=== PATIENT | female | born 1950 | race Caucasian/White ===

== ENCOUNTER → 2016-11-02 | Outpatient (REF) ==
[2015-12-12 16:52] VITALS: BP 185/109
[~2016-11-02] MED LIST: AMBIEN CR6.25 M1 PO; AMBIEN5 M1 PO; AMLODIPINE5 MG PO; MAXALT MLT10 MG/TAB PO; MIRAPEX0.5 MG PO; NUBAIN; OMEPRAZOLE40 MG PO; PERCOCET 325 MG1 TA2 PO; REGLAN 10M10 MG/2 ML; RELPAX 40MG TAB40 MG PO; RELPAX40 MG PO; RESTORIL30 MG PO; TEMAZEPAM; TREXIMET PO; XANAX0.25 MG PO
== END ==
LOC: LAB 15:55
DX: R10.30 Lower abdominal pain, unspecified (principal)

== ENCOUNTER 2017-12-07 19:24 | Emergency (ER) | payer OTHER ==
[~2017-12-07 19:24] MED LIST changes: +RESTORIL30 M1 PO; -RESTORIL30 MG PO
[2017-12-07] MEDS ORDERED: LISINOPRIL40 MG PO (19:32)
[2017-12-07] MEDS ORDERED: MIRAPEX0.125 M1 PO (19:32)
[2017-12-07] MEDS ORDERED: TOPROL XL 50MG50 MG PO (19:33)
[2017-12-07] MEDS ORDERED: KAPSPARGO SPRIN50 MG PO (19:33)
[2017-12-07 20:25] LABS: EOS # 0.2 (0.04-0.40); EOS % 2.3 % (1.0-5.0); HEMATOCRIT 44.5 % (37.0-47.0); HEMOGLOBIN 15.3 g/dL (12.5-16.0); LYMPH# 3.8 (1.50-4.00); MEAN CELL VOLUME 92 fl (78-100); MEAN CORPUSCULAR HEMOGLOBIN 32 pg (27-31); MEAN CORPUSCULAR HGB CONC 34 g/dL (33-37); MEAN PLATELET VOLUME 9.5 fl (7.4-10.4); MONO # 0.7 (0.20-0.80); PLATELET COUNT 231 K/mm3 (130-400); RED BLOOD COUNT 4.82 M/mm3 (4.10-5.30); WHITE BLOOD COUNT 8.7 K/mm3 (4.8-10.8)
[2017-12-07 20:39] LABS: ALBUMIN 4.3 g/dL (3.5-5.0); CALCIUM 9.7 mg/dL (8.4-10.2); POTASSIUM 4.2 mmol/L (3.6-5.0); TOTAL BILIRUBIN 0.7 mg/dL (0.2-1.3); TOTAL PROTEIN 7.9 g/dL (6.3-8.2)
[2017-12-07 20:40] LABS: PROTHROMBIN TIME 9.5 SECONDS (9.0-12.0)
[2017-12-07 21:04] LABS: URINE APPEARANCE HAZY; URINE BILIRUBIN NEGATIVE (NEGATIVE); URINE BLOOD TRACE (NEGATIVE); URINE COLOR YELLOW; URINE GLUCOSE NEGATIVE (NEGATIVE); URINE KETONE NEGATIVE (NEGATIVE); URINE LEUKOCYTE ESTERASE TRACE (NEGATIVE); URINE NITRATE NEGATIVE (NEGATIVE); URINE PROTEIN(semi-quant) NEGATIVE (NEGATIVE); URINE UROBILINOGEN NORMAL (NORMAL)
[2017-12-07 21:08] LABS: TROPONIN-I < 0.03 ng/mL (0.00-0.06)
[2017-12-07 22:02] VITALS: BP 142/94
== END 2017-12-07 22:02 | disposition home or self-care (01) ==
LOC: ED 19:24
PROVIDERS: Nurse Practitioner
DX: I10 Essential (primary) hypertension (principal); Z87.891 Personal history of nicotine dependence; Z79.899 Other long term (current) drug therapy

== ENCOUNTER → 2018-09-08 | Outpatient (CLI) | payer MEDICARE, OTHER ==
[2018-08-30 18:50] VITALS: BP 138/63
[~2018-09-08] MED LIST changes: +BENZONATATE200 MG PO; +HCTZ 25MG25 MG PO; +KAPSPARGO SPRIN50 MG PO; +LISINOPRIL40 MG PO; +MIRAPEX0.125 M1 PO; +PANTOPRAZOLE SO40 MG PO; +PRAMIPEXOLE DI0.5 MG PO; +QUETIAPINE FUMA50 M1 PO; +SUMATRIPTAN-NA1 EACH PO; +TEMAZEPAM30 M1 PO; +TOPROL XL 50MG50 MG PO
[2018-09-08 12:47] LABS: POTASSIUM 4.3 mmol/L (3.5-5.1)
[2018-09-08 12:48] LABS: CALCIUM 9.5 mg/dL (8.3-10.5)
== END ==
LOC: LAB 11:11
PROVIDERS: Family Medicine
DX: I10 Essential (primary) hypertension (principal)

== ENCOUNTER 2019-07-26 19:51 | Emergency (ER) | payer MEDICARE, OTHER ==
[~2019-07-26] VITALS: Ht 177.8 cm; Wt 100.0 kg
[2019-07-26 21:08] LABS: EOS # 0.1 (0.04-0.40); EOS % 1.4 % (1.0-5.0); HEMATOCRIT 42.6 % (37.0-47.0); HEMOGLOBIN 14.5 g/dL (12.5-16.0); LYMPH# 2.4 (1.50-4.00); MEAN CELL VOLUME 93 fl (78-100); MEAN CORPUSCULAR HEMOGLOBIN 32 pg (27-31); MEAN CORPUSCULAR HGB CONC 34 g/dL (33-37); MEAN PLATELET VOLUME 9.3 fl (7.4-10.4); MONO # 0.7 (0.20-0.80); NEU # 6.3 (1.40-6.50); PLATELET COUNT 179 K/mm3 (130-400); RED BLOOD COUNT 4.58 M/mm3 (4.10-5.30); RED CELL DISTRIBUTION WIDTH 12.7 % (11.5-14.5); WHITE BLOOD COUNT 9.6 K/mm3 (4.8-10.8)
[2019-07-26 21:19] LABS: ALBUMIN 3.9 g/dL (3.4-4.8)
[2019-07-26 21:21] LABS: CALCIUM 9.4 mg/dL (8.3-10.5)
[2019-07-26 21:22] LABS: TOTAL PROTEIN 7.5 g/dL (6.2-8.1)
[2019-07-26 21:24] LABS: TOTAL BILIRUBIN 1.1 mg/dL (0.2-1.2)
[2019-07-26 21:51] LABS: PH-URINE 5.5 (5.0 - 8.0); URINE APPEARANCE CLEAR; URINE COLOR YELLOW
[2019-07-26 21:52] LABS: URINE BILIRUBIN NEGATIVE (NEGATIVE); URINE BLOOD NEGATIVE (NEGATIVE); URINE GLUCOSE NEGATIVE (NEGATIVE); URINE KETONE NEGATIVE (NEGATIVE); URINE LEUKOCYTE ESTERASE NEGATIVE (NEGATIVE); URINE NITRATE NEGATIVE (NEGATIVE); URINE PROTEIN(semi-quant) NEGATIVE (NEGATIVE); URINE UROBILINOGEN NORMAL (NORMAL)
[2019-07-26 22:16] VITALS: BP 86/50
== END 2019-07-26 22:15 | disposition other institution (70) ==
LOC: ED 19:51
PROVIDERS: Nurse Practitioner
DX: K57.92 Diverticulitis of intestine, part unspecified, without perforation or abscess without bleeding (principal); I10 Essential (primary) hypertension; K21.9 Gastro-esophageal reflux disease without esophagitis; Z90.710 Acquired absence of both cervix and uterus
CPT/HCPCS: J2405; J3010; Q9967

== ENCOUNTER 2019-07-26 22:06 | Inpatient (IN) | payer MEDICARE, OTHER ==
[~2019-07-26] VITALS: Ht 177.8 cm; Wt 98.8 kg
[2019-07-26 22:46] VITALS: BP 86/50
[2019-07-26 22:58] VITALS: BP 86/50
[2019-07-27 01:39] VITALS: BP 88/56
[2019-07-27 03:10] VITALS: BP 86/56
[2019-07-27 05:57] VITALS: BP 93/62
[2019-07-27 09:31] LABS: EOS # 0.3 (0.04-0.40); EOS % 2.6 % (1.0-5.0); HEMATOCRIT 39.8 % (37.0-47.0); HEMOGLOBIN 13.1 g/dL (12.5-16.0); LYMPH# 2.9 (1.50-4.00); MEAN CELL VOLUME 94 fl (78-100); MEAN CORPUSCULAR HEMOGLOBIN 31 pg (27-31); MEAN CORPUSCULAR HGB CONC 33 g/dL (33-37); MEAN PLATELET VOLUME 9.5 fl (7.4-10.4); MONO # 0.9 (0.20-0.80); NEU # 5.5 (1.40-6.50); PLATELET COUNT 164 K/mm3 (130-400); RED BLOOD COUNT 4.22 M/mm3 (4.10-5.30); RED CELL DISTRIBUTION WIDTH 12.8 % (11.5-14.5); WHITE BLOOD COUNT 9.6 K/mm3 (4.8-10.8)
[2019-07-27 09:42] LABS: ALBUMIN 3.5 g/dL (3.4-4.8)
[2019-07-27 09:43] LABS: POTASSIUM 4.2 mmol/L (3.5-5.1)
[2019-07-27 09:45] LABS: TOTAL PROTEIN 6.7 g/dL (6.2-8.1)
[2019-07-27 09:47] LABS: TOTAL BILIRUBIN 0.9 mg/dL (0.2-1.2)
[2019-07-27 09:49] LABS: CALCIUM 8.4 mg/dL (8.3-10.5)
[2019-07-27 10:20] VITALS: BP 109/75
[2019-07-27 17:23] VITALS: BP 118/76
[2019-07-27 21:56] VITALS: BP 129/85
[2019-07-28] VITALS (8 sets, daily range): BP systolic 84–145; BP diastolic 52–89
[2019-07-29 01:51] VITALS: BP 114/75
[2019-07-29 06:18] VITALS: BP 110/75; BP 97/66
[2019-07-29 10:28] VITALS: BP 94/62
[2019-07-29 14:05] VITALS: BP 104/71
[2019-07-29 17:45] VITALS: BP 116/75
[2019-07-29 22:12] VITALS: BP 137/79
[2019-07-30 02:32] VITALS: BP 121/79
[2019-07-30 05:55] VITALS: BP 119/76
[2019-07-30 08:04] VITALS: BP 118/82
[2019-07-30] MEDS ORDERED: FLAGYL500 M1 PO (08:57)
[2019-07-30] MEDS ORDERED: CIPRO500 M1 PO (08:57)
[2019-07-30 09:33] VITALS: BP 126/84
== END 2019-07-30 12:30 | disposition home health service (06) | DRG 392 ==
LOC: MED/SURG 22:06
PROVIDERS: ADMIT Nurse Practitioner
DX: K57.32 Diverticulitis of large intestine without perforation or abscess without bleeding (principal); I10 Essential (primary) hypertension; K21.9 Gastro-esophageal reflux disease without esophagitis; G47.00 Insomnia, unspecified; G43.909 Migraine, unspecified, not intractable, without status migrainosus; N28.9 Disorder of kidney and ureter, unspecified; Z90.710 Acquired absence of both cervix and uterus; Z96.651 Presence of right artificial knee joint; Z87.891 Personal history of nicotine dependence; Z88.0 Allergy status to penicillin; Z88.6 Allergy status to analgesic agent; Z88.5 Allergy status to narcotic agent
CPT/HCPCS: J0744; J2270; J2405; J3490; J7030

== ENCOUNTER → 2019-11-08 | Day surgery (SDC) | payer MEDICARE, OTHER ==
[~2019-11-08] MED LIST changes: +CIPRO500 M1 PO; +FLAGYL500 M1 PO
== END ==
LOC: MSO 07:04
DX: Z12.11 Encounter for screening for malignant neoplasm of colon (principal); Z86.010 Personal history of colon polyps; K57.30 Diverticulosis of large intestine without perforation or abscess without bleeding; K64.4 Residual hemorrhoidal skin tags; Z88.5 Allergy status to narcotic agent; Z88.0 Allergy status to penicillin; Z88.8 Allergy status to other drugs, medicaments and biological substances; K21.9 Gastro-esophageal reflux disease without esophagitis; I10 Essential (primary) hypertension; E66.9 Obesity, unspecified; Z90.710 Acquired absence of both cervix and uterus; Z90.49 Acquired absence of other specified parts of digestive tract; Z87.891 Personal history of nicotine dependence
CPT/HCPCS: 00811; J2704; J7120

== ENCOUNTER → 2020-05-10 | Outpatient (CLI) | payer MEDICARE, OTHER ==
[2020-03-22 23:52] VITALS: BP 108/78
== END ==
LOC: RAD 12:29
DX: R07.81 Pleurodynia (principal)

== ENCOUNTER → 2020-12-18 | Outpatient (CLI) | payer MEDICARE, OTHER ==
[2020-12-18 09:52] LABS: POTASSIUM 4.5 mmol/L (3.5-5.1)
[2020-12-18 09:53] LABS: ALBUMIN 3.8 g/dL (3.4-4.8)
[2020-12-18 09:54] LABS: CALCIUM 9.6 mg/dL (8.3-10.5)
[2020-12-18 09:55] LABS: TOTAL PROTEIN 7.3 g/dL (6.2-8.1)
[2020-12-18 09:57] LABS: TOTAL BILIRUBIN 0.6 mg/dL (0.2-1.2)
== END ==
LOC: LAB 09:17
PROVIDERS: Family Medicine
DX: Z13.820 Encounter for screening for osteoporosis (principal); Z00.00 Encounter for general adult medical examination without abnormal findings; Z82.49 Family history of ischemic heart disease and other diseases of the circulatory system

== ENCOUNTER → 2020-12-22 | Outpatient (CLI) | payer MEDICARE, OTHER | LOC: LAB 08:17 | PROVIDERS: Family Medicine | DX: Z00.00 Encounter for general adult medical examination without abnormal findings (principal); Z13.820 Encounter for screening for osteoporosis; R73.03 Prediabetes; Z82.49 Family history of ischemic heart disease and other diseases of the circulatory system ==

== ENCOUNTER → 2021-01-06 | Outpatient (CLI) | payer MEDICARE, OTHER | LOC: RAD 08:21 → MAMMO 08:30 | DX: Z00.00 Encounter for general adult medical examination without abnormal findings (principal); Z82.49 Family history of ischemic heart disease and other diseases of the circulatory system; Z13.820 Encounter for screening for osteoporosis; M81.0 Age-related osteoporosis without current pathological fracture ==

== ENCOUNTER → 2021-01-16 | Outpatient (CLI) | payer MEDICARE, OTHER | LOC: CARDREHAB 07:44 → CARDLAB 08:17 | DX: I10 Essential (primary) hypertension (principal); R73.03 Prediabetes; Z82.49 Family history of ischemic heart disease and other diseases of the circulatory system | CPT/HCPCS: A9500 ==

== ENCOUNTER → 2021-01-23 | Outpatient (CLI) | payer MEDICARE, OTHER | LOC: LAB 08:57 | DX: M81.0 Age-related osteoporosis without current pathological fracture (principal) ==

== ENCOUNTER → 2021-02-26 | Outpatient (CLI) | payer MEDICARE, OTHER | LOC: RAD 09:22 | DX: J98.11 Atelectasis (principal) ==

== ENCOUNTER → 2021-03-30 | Outpatient (CLI) | payer MEDICARE, OTHER | LOC: LAB 08:13 | DX: E55.9 Vitamin D deficiency, unspecified (principal) ==

== ENCOUNTER 2021-04-06 09:38 | Emergency (ER) | payer MEDICARE, OTHER ==
[2021-04-06] MEDS ORDERED: ALENDRONATE SOD10 M1 PO (10:24)
[2021-04-06 11:16] LABS: ALBUMIN 4.1 g/dL (3.4-4.8)
[2021-04-06 11:17] LABS: BASO # 0.05 K/mm3 (0.02-0.10); EOS # 0.22 K/mm3 (0.04-0.40); EOS % 2.7 % (1.0-5.0); HEMATOCRIT 48.6 % (37.0-47.0); HEMOGLOBIN 16.8 g/dL (12.5-16.0); LYMPH# 3.39 K/mm3 (1.50-4.00); MEAN CELL VOLUME 91 fl (78-100); MEAN CORPUSCULAR HEMOGLOBIN 32 pg (27-31); MEAN CORPUSCULAR HGB CONC 35 g/dL (33-37); MEAN PLATELET VOLUME 9.3 fl (7.4-10.4); MONO # 0.56 K/mm3 (0.20-0.80); NEU # 4.03 K/mm3 (1.40-6.50); PLATELET COUNT 254 K/mm3 (130-400); POTASSIUM 3.8 mmol/L (3.5-5.1); RED BLOOD COUNT 5.34 M/mm3 (4.10-5.30); RED CELL DISTRIBUTION WIDTH 12.5 % (11.5-14.5); SODIUM 138 mmol/L (136-145); WHITE BLOOD COUNT 8.3 K/mm3 (4.8-10.8)
[2021-04-06 11:18] LABS: CALCIUM 10.3 mg/dL (8.3-10.5)
[2021-04-06 11:19] LABS: GLUCOSE 132 mg/dL (65-105); TOTAL PROTEIN 8.1 g/dL (6.2-8.1)
[2021-04-06 11:20] LABS: CARBON DIOXIDE 23 mmol/L (23-31)
[2021-04-06 11:21] LABS: TOTAL BILIRUBIN 1.1 mg/dL (0.2-1.2)
[2021-04-06 11:24] LABS: AST-SGOT 32 U/L (5-34)
[2021-04-06 11:25] LABS: ALT/SGPT 33 U/L (0-55)
[2021-04-06 12:23] LABS: ERYTHROCYTE SEDIMENTATION RATE 4 mm/hr (0-30)
[2021-04-06 13:22] VITALS: BP 129/90
== END 2021-04-06 13:11 | disposition home or self-care (01) ==
LOC: ED 09:38
PROVIDERS: Nurse Practitioner
DX: G43.909 Migraine, unspecified, not intractable, without status migrainosus (principal); F32.A Depression, unspecified; F41.9 Anxiety disorder, unspecified; F17.210 Nicotine dependence, cigarettes, uncomplicated; Z20.822 Contact with and (suspected) exposure to COVID-19; Z79.899 Other long term (current) drug therapy
CPT/HCPCS: J0595; J1200; J1885; J2405; J3360; J7030; J7040

== ENCOUNTER → 2021-07-08 | Day surgery (SDC) | payer MEDICARE, OTHER ==
[~2021-07-08] MED LIST changes: +ALENDRONATE SOD10 M1 PO; +BACTRIM DS TAB1 EACH PO; +METRONIDAZOLE500 M1 PO; +NORCO 325 MG-51 TA1 PO
== END | disposition home or self-care (01) ==
LOC: MSO 02:14
DX: H25.811 Combined forms of age-related cataract, right eye (principal); F17.210 Nicotine dependence, cigarettes, uncomplicated
CPT/HCPCS: 00142; J0171; J2250; J2405; J3010; V2632

== ENCOUNTER → 2021-08-05 | Day surgery (SDC) | payer MEDICARE, OTHER | LOC: MSO 08:02 | DX: H25.812 Combined forms of age-related cataract, left eye (principal); F17.210 Nicotine dependence, cigarettes, uncomplicated | CPT/HCPCS: 00142; J0171; J2250; J2405; J3010; V2632 ==

== ENCOUNTER → 2021-08-28 | Outpatient (CLI) | payer MEDICARE, OTHER | LOC: RAD 10:47 | DX: R05.3 Chronic cough (principal) ==

== ENCOUNTER → 2022-11-29 | Outpatient (CLI) | payer MEDICARE, OTHER ==
[2022-11-29 10:26] LABS: CALCIUM 10.6 mg/dL (8.3-10.5)
== END ==
LOC: LAB 09:50
PROVIDERS: Family Medicine
DX: Z23 Encounter for immunization (principal); F51.04 Psychophysiologic insomnia; I12.9 Hypertensive chronic kidney disease with stage 1 through stage 4 chronic kidney disease, or unspecified chronic kidney disease; N18.30 Chronic kidney disease, stage 3 unspecified; R73.03 Prediabetes; F41.1 Generalized anxiety disorder; Z82.49 Family history of ischemic heart disease and other diseases of the circulatory system

== ENCOUNTER 2023-08-03 12:22 | Emergency (ER) | payer MEDICARE ==
[~2023-08-03] VITALS: Ht 177.8 cm; Wt 94.6 kg
[2023-08-03 12:53] LABS: BASO # 0.01 K/mm3 (0.02-0.10); EOS # 0.33 K/mm3 (0.04-0.40); EOS % 4.8 % (1.0-5.0); HEMATOCRIT 41.2 % (37.0-47.0); HEMOGLOBIN 14.4 g/dL (12.5-16.0); LYMPH# 2.25 K/mm3 (1.50-4.00); MEAN CELL VOLUME 92 fl (78-100); MEAN CORPUSCULAR HEMOGLOBIN 32 pg (27-31); MEAN CORPUSCULAR HGB CONC 35 g/dL (33-37); MEAN PLATELET VOLUME 8.6 fl (7.4-10.4); MONO # 0.48 K/mm3 (0.20-0.80); NEU # 3.81 K/mm3 (1.40-6.50); PLATELET COUNT 184 K/mm3 (130-400); RED BLOOD COUNT 4.46 M/mm3 (4.10-5.30); RED CELL DISTRIBUTION WIDTH 11.9 % (11.5-14.5); WHITE BLOOD COUNT 6.9 K/mm3 (4.8-10.8)
[2023-08-03] MEDS ORDERED: HCTZ 25MG25 MG PO (13:00)
[2023-08-03] MEDS ORDERED: ATORVASTATIN CA20 MG PO (13:00)
[2023-08-03] MEDS ORDERED: LOSARTAN POTASS50 M1 PO (13:00)
[2023-08-03] MEDS ORDERED: MAGNESIUM PO (13:01)
[2023-08-03 13:06] LABS: SODIUM 139 mmol/L (136-145)
[2023-08-03 13:07] LABS: CALCIUM 9.6 mg/dL (8.3-10.5)
[2023-08-03 13:08] LABS: GLUCOSE 131 mg/dL (65-105); TOTAL PROTEIN 7.3 g/dL (6.2-8.1)
[2023-08-03 13:09] LABS: CARBON DIOXIDE 25 mmol/L (23-31)
[2023-08-03 13:14] LABS: AST-SGOT 36 U/L (5-34); D-DIMER 0.41 mg/L FEU (0.15-0.50)
[2023-08-03 13:15] LABS: ALT/SGPT 28 U/L (0-55); LIPASE 61 U/L (8-78)
[2023-08-03 13:21] LABS: TROPONIN-I < 0.030 ng/mL (0.00-0.033)
[2023-08-03] MEDS ORDERED: Acetaminophen 500 MG TAB PO ONE (13:45)
[2023-08-03] MEDS ORDERED: Mag/Al Hydrox/Simeth Susp 30 ML CUP PO ONE (13:45)
[2023-08-03] MEDS ORDERED: Ketorolac 30 MG/ML VIAL IV ONE (14:45)
[2023-08-03 15:16] LABS: URINE APPEARANCE CLOUDY (CLEAR); URINE BILIRUBIN NEGATIVE (NEGATIVE); URINE COLOR YELLOW (YELLOW); URINE GLUCOSE NEGATIVE (NEGATIVE); URINE KETONE NEGATIVE (NEGATIVE); URINE PROTEIN(semi-quant) NEGATIVE (NEGATIVE)
[2023-08-03 15:17] LABS: URINE BLOOD TRACE-INTACT (NEGATIVE); URINE LEUKOCYTE ESTERASE 3+ (NEGATIVE); URINE NITRATE POSITIVE (NEGATIVE)
[2023-08-03 15:18] LABS: URINE WBC 31-50 /hpf (0-3)
[2023-08-03] MEDS ORDERED: Nitrofurantoin (Mono/Macro) 100 MG CAPSULE PO ONE (15:30)
[2023-08-03 17:47] VITALS: BP 115/64
== END 2023-08-03 17:55 | disposition home or self-care (01) ==
LOC: ED 12:22
PROVIDERS: Family Medicine
DX: R07.89 Other chest pain (principal); R51.9 Headache, unspecified; E86.0 Dehydration
CPT/HCPCS: J1885; J7120

== ENCOUNTER → 2024-01-03 | Outpatient (CLI) | payer MEDICARE ==
[~2024-01-03] MED LIST changes: +ATORVASTATIN CA20 MG PO; +LOSARTAN POTASS50 M1 PO; +MAGNESIUM PO; +RAMELTEON8 MG PO; +TOPCARE OMEPRAZ20 MG PO
== END ==
LOC: RAD 11:36
DX: M51.369 Other intervertebral disc degeneration, lumbar region without mention of lumbar back pain or lower extremity pain (principal); M48.061 Spinal stenosis, lumbar region without neurogenic claudication

== ENCOUNTER → 2024-01-19 | Outpatient (CLI) | payer MEDICARE ==
[2024-01-19 09:06] LABS: CALCIUM 10.2 mg/dL (8.3-10.5)
[2024-01-19 09:12] LABS: MAGNESIUM 2.06 mg/dL (1.60-2.60)
== END ==
LOC: LAB 08:37
PROVIDERS: Family Medicine
DX: R25.2 Cramp and spasm (principal); E87.6 Hypokalemia

== ENCOUNTER 2024-02-26 22:42 | Emergency (ER) | payer MEDICARE ==
[~2024-02-26] VITALS: Ht 170.2 cm; Wt 96.8 kg
[2024-02-26 23:36] LABS: ALBUMIN 3.5 g/dL (3.4-4.8); BASO # 0.03 K/mm3 (0.02-0.10); EOS # 0.19 K/mm3 (0.04-0.40); EOS % 2.3 % (1.0-5.0); HEMATOCRIT 40.5 % (37.0-47.0); LYMPH# 2.22 K/mm3 (1.50-4.00); MEAN CELL VOLUME 93 fl (78-100); MEAN CORPUSCULAR HEMOGLOBIN 32 pg (27-31); MEAN CORPUSCULAR HGB CONC 35 g/dL (33-37); MEAN PLATELET VOLUME 9.3 fl (7.4-10.4); MONO # 1.01 K/mm3 (0.20-0.80); NEU # 4.73 K/mm3 (1.40-6.50); RED BLOOD COUNT 4.38 M/mm3 (4.10-5.30); RED CELL DISTRIBUTION WIDTH 12.6 % (11.5-14.5); WHITE BLOOD COUNT 8.2 K/mm3 (4.8-10.8)
[2024-02-26 23:38] LABS: CALCIUM 9.6 mg/dL (8.3-10.5)
[2024-02-26 23:39] LABS: TOTAL PROTEIN 6.5 g/dL (6.2-8.1)
[2024-02-26 23:41] LABS: TOTAL BILIRUBIN 0.7 mg/dL (0.2-1.2)
[2024-02-26] MEDS ORDERED: NS 1,000 ML IV SCH (23:45)
[2024-02-26 23:46] LABS: PLATELET COUNT 177 K/mm3 (130-400)
[2024-02-27] MEDS ORDERED: REGLAN5 M1 PO (00:45)
[2024-02-27] MEDS ORDERED: IMITREX50 M1 PO (00:45)
[2024-02-27] MEDS ORDERED: SUMAtriptan 6 MG/0.5 ML VIAL SQ ONE (00:45)
[2024-02-27] MEDS ORDERED: SUMAtriptan 25 MG TAB PO ONE (01:00)
[2024-02-27 02:16] VITALS: BP 119/75
== END 2024-02-27 02:27 | disposition home or self-care (01) ==
LOC: ED 22:42
PROVIDERS: Physician Assistant
DX: A08.4 Viral intestinal infection, unspecified (principal); H65.93 Unspecified nonsuppurative otitis media, bilateral; N18.9 Chronic kidney disease, unspecified; G43.909 Migraine, unspecified, not intractable, without status migrainosus; R55 Syncope and collapse
CPT/HCPCS: J2765; J3030; J7030

== ENCOUNTER 2024-04-01 17:19 | Emergency (ER) | payer MEDICARE ==
[~2024-04-01] VITALS: Ht 177.8 cm; Wt 93.0 kg
[~2024-04-01 17:19] MED LIST changes: +IMITREX50 M1 PO; +REGLAN5 M1 PO
[2024-04-01] MEDS ORDERED: Ondansetron 4 MG/2 ML VIAL IV ONE (18:15)
[2024-04-01 18:34] LABS: ALBUMIN 4.5 g/dL (3.4-4.8)
[2024-04-01 18:37] LABS: TOTAL PROTEIN 8.9 g/dL (6.2-8.1)
[2024-04-01 18:38] LABS: TOTAL BILIRUBIN 1.6 mg/dL (0.2-1.2)
[2024-04-01 18:44] LABS: BASO # 0.02 K/mm3 (0.02-0.10); EOS # 0.01 K/mm3 (0.04-0.40); EOS % 0.1 % (1.0-5.0); HEMATOCRIT 46.7 % (37.0-47.0); HEMOGLOBIN 16.3 g/dL (12.5-16.0); LYMPH# 1.32 K/mm3 (1.50-4.00); MEAN CELL VOLUME 91 fl (78-100); MEAN CORPUSCULAR HEMOGLOBIN 32 pg (27-31); MEAN CORPUSCULAR HGB CONC 35 g/dL (33-37); MEAN PLATELET VOLUME 8.9 fl (7.4-10.4); MONO # 0.27 K/mm3 (0.20-0.80); NEU # 7.34 K/mm3 (1.40-6.50); PLATELET COUNT 238 K/mm3 (130-400); RED BLOOD COUNT 5.12 M/mm3 (4.10-5.30); RED CELL DISTRIBUTION WIDTH 12.5 % (11.5-14.5)
[2024-04-01] MEDS ORDERED: hydrALAZINE 20 MG/ML 1 ML VIAL IV ONE (19:00)
[2024-04-01] MEDS ORDERED: Acetaminophen 500 MG TAB PO ONE (19:00)
[2024-04-01] MEDS ORDERED: diphenhydrAMINE 50 MG/ML 1 ML VIAL IV ONE (19:30)
[2024-04-01] MEDS ORDERED: Ketorolac 30 MG/ML VIAL IV ONE (20:00)
[2024-04-01] MEDS ORDERED: ZOFRAN ODT4 MG PO (20:37)
[2024-04-01] MEDS ORDERED: Home Ondansetron ODT 4 MG #2 ODT/PACK PO ONE (20:45)
[2024-04-01 21:32] VITALS: BP 107/93
== END 2024-04-01 21:33 | disposition home or self-care (01) ==
LOC: ED 17:19
PROVIDERS: Physician Assistant
DX: I10 Essential (primary) hypertension (principal); J06.9 Acute upper respiratory infection, unspecified; R00.0 Tachycardia, unspecified; R74.01 Elevation of levels of liver transaminase levels; Z88.6 Allergy status to analgesic agent
CPT/HCPCS: J0360; J1200; J1885; J2405; J2765

== ENCOUNTER → 2024-05-11 | Outpatient (CLI) | payer MEDICARE ==
[~2024-05-11] MED LIST changes: +ZOFRAN ODT4 MG PO
[2024-05-11 09:23] LABS: CALCIUM 9.9 mg/dL (8.3-10.5)
== END ==
LOC: LAB 09:06
PROVIDERS: Family Medicine
DX: R73.03 Prediabetes (principal); I10 Essential (primary) hypertension; Z82.49 Family history of ischemic heart disease and other diseases of the circulatory system

== ENCOUNTER → 2024-05-18 | Outpatient (CLI) | payer MEDICARE | LOC: RAD 10:46 | DX: M16.12 Unilateral primary osteoarthritis, left hip (principal) ==